=== PATIENT | male | born 1970 | race Caucasian/White ===

== ENCOUNTER 2016-06-28 11:53 | Emergency (ER) | payer OTHER | END 2016-06-28 17:47 | disposition home or self-care (01) | LOC: ER 11:53 | DX: J45.901 Unspecified asthma with (acute) exacerbation (principal); Z79.899 Other long term (current) drug therapy | CPT/HCPCS: 36415; 87502; 94640; 96374 ==

== ENCOUNTER → 2016-07-17 | Day surgery (SDC) | payer OTHER | END | disposition home or self-care (01) | LOC: SDC 11:41 | DX: K42.9 Umbilical hernia without obstruction or gangrene (principal); I10 Essential (primary) hypertension; J45.909 Unspecified asthma, uncomplicated; K21.9 Gastro-esophageal reflux disease without esophagitis; F41.9 Anxiety disorder, unspecified; Z87.442 Personal history of urinary calculi; Z88.2 Allergy status to sulfonamides; Z98.41 Cataract extraction status, right eye; Z98.42 Cataract extraction status, left eye; Z98.890 Other specified postprocedural states | CPT/HCPCS: C1781; J1885; J2704 ==

== ENCOUNTER 2016-09-27 12:58 | Emergency (ER) | payer OTHER | END 2016-09-27 14:30 | disposition home or self-care (01) | LOC: ER 12:58 | DX: J45.901 Unspecified asthma with (acute) exacerbation (principal); R07.81 Pleurodynia; K21.9 Gastro-esophageal reflux disease without esophagitis; F41.9 Anxiety disorder, unspecified; Z88.2 Allergy status to sulfonamides; I10 Essential (primary) hypertension; Z98.890 Other specified postprocedural states; Z79.899 Other long term (current) drug therapy | CPT/HCPCS: 36415; 96374 ==

== ENCOUNTER 2016-12-31 17:23 | Emergency (ER) | payer OTHER | END 2016-12-31 18:59 | disposition home or self-care (01) | LOC: ER 17:23 | PROC: 0HQFXZZ Repair Right Hand Skin, External Approach (ICD-10-PCS; principal; 2016-12-31) | PROC: 2W3EX1Z Immobilization of Right Hand using Splint (ICD-10-PCS; 2016-12-31) | DX: S62.640A Nondisplaced fracture of proximal phalanx of right index finger, initial encounter for closed fracture (principal); S61.212A Laceration without foreign body of right middle finger without damage to nail, initial encounter; I10 Essential (primary) hypertension; J45.909 Unspecified asthma, uncomplicated; K21.9 Gastro-esophageal reflux disease without esophagitis; F41.9 Anxiety disorder, unspecified; Z23 Encounter for immunization; W23.0XXA Caught, crushed, jammed, or pinched between moving objects, initial encounter; Y92.009 Unspecified place in unspecified non-institutional (private) residence as the place of occurrence of the external cause | CPT/HCPCS: 90471 ==